=== PATIENT | female | born 1995 | race Two or more races ===

== ENCOUNTER 2018-02-13 08:29 | Emergency (ER) | payer SELFPAY ==
[2018-02-13 08:34] VITALS: BP 118/64
[2018-02-13] MEDS ORDERED: LIDOCAINE 2% VISCOUS SOLN 20 ML UDCUP PO ONE (10:10)
[2018-02-13] MEDS ORDERED: DEXAMETHASONE 4 MG TABLET PO ONE (10:10)
[2018-02-13] MEDS ORDERED: MAG HYDROX/AL HYDROX/SIMETH SUSP 30 ML UDCUP PO ONE (10:10)
--- NOTE | 2018-02-13 10:40 | ER Document Report ---
ED General - General Chief Complaint: Sore Throat Stated Complaint: SORE THROAT, COUGH Time Seen by Provider: 02/13/18 08:42 TRAVEL OUTSIDE OF THE [place] IN LAST 30 DAYS: No - HPI Patient complains to provider of: Sore throat Notes: Patient coming in for evaluation of sore throat. States ongoing for the last 24 hours. Patient states sick contacts last month with people with strep and viral URI like symptoms. Patient states no recent sick contacts no recent travel no fevers no chills no nausea vomiting patient states cough states difficulty swallowing because of pain. Patient resting comfortably well- hydrated upon my evaluation. - Related Data Allergies/Adverse Reactions: codeine [Codeine] Allergy (Verified 04/07/15 01:21) Home Medications: no home meds Past Medical History - Social History Smoking Status: Current Every Day Smoker Chew tobacco use (# tins/day): No Frequency of alcohol use: Occasional Drug Abuse: Marijuana Family History: Reviewed & Not Pertinent Patient has suicidal ideation: No Patient has homicidal ideation: No Renal/ Medical History: Denies: Hx Peritoneal Dialysis - Immunizations Hx Diphtheria, Pertussis, Tetanus Vaccination: Yes Review of Systems - Review of Systems Constitutional: No symptoms reported EENT: Throat pain Cardiovascular: No symptoms reported Respiratory: No symptoms reported Gastrointestinal: No symptoms reported Genitourinary: No symptoms reported Female Genitourinary: No symptoms reported Musculoskeletal: No symptoms reported Skin: No symptoms reported Hematologic/Lymphatic: No symptoms reported Neurological/Psychological: No symptoms reported -: Yes All other systems reviewed and negative Physical Exam - Vital signs Vitals: Temp Pulse Resp BP Pulse Ox 98.0 F 83 16 118/64 98 02/13/18 08:33 02/13/18 08:33 02/13/18 08:33 02/13/18 08:33 02/13/18 08:33 Interpretation: Normal - General General appearance: Appears well, Alert - HEENT Head: Normocephalic, Atraumatic Eyes: Normal Conjunctiva: Normal Cornea: Normal Eyelashes: Normal Pupils: PERRL Ears: Normal External canal: Normal Tympanic membrane: Normal Sinus: Normal Nasal: Normal Mouth/Lips: Normal Pharynx: Normal Neck: Normal - Respiratory Respiratory status: No respiratory distress Chest status: Nontender Breath sounds: Normal Chest palpation: Normal - Cardiovascular Rhythm: Regular Heart sounds: Normal auscultation Murmur: No - Abdominal Inspection: Normal Distension: No distension Bowel sounds: Normal Tenderness: Nontender Organomegaly: No organomegaly - Back Back: Normal, Nontender - Extremities General upper extremity: Normal inspection, Nontender, Normal color, Normal ROM , Normal temperature General lower extremity: Normal inspection, Nontender, Normal color, Normal ROM , Normal temperature, Normal weight bearing. No: Cecelia's sign - Neurological Neuro grossly intact: Yes Cognition: Normal Orientation: AAOx4 Audi Coma Scale Eye Opening: Spontaneous [place] Coma Scale Verbal: Oriented [place] Coma Scale Motor: Obeys Commands [place] Coma Scale Total: 15 Speech: Normal Motor strength normal: LUE, RUE, LLE, RLE Sensory: Normal - Psychological Associated symptoms: Normal affect, Normal mood - Skin Skin Temperature: Warm Skin Moisture: Dry Skin Color: Normal Course - Re-evaluation Re-evalutation: 02/13/18 14:39 Patient was negative. Examination was not revealing significant pathology. More likely viral pharyngitis. Will give the patient a dose of Decadron patient was encouraged to use Tylenol and Motrin for pain control. Patient also be given a prescription for magic mouth wash - Vital Signs Vital signs: Temp Pulse Resp BP Pulse Ox 98.0 F 83 16 118/64 98 02/13/18 08:33 02/13/18 08:33 02/13/18 08:33 02/13/18 08:33 02/13/18 08:33 Discharge - Discharge Clinical Impression: Sore throat (viral) Condition: Good Disposition: HOME, SELF-CARE Instructions: Upper Respiratory Illness ([facility]), Sore Throat ([facility]) Additional Instructions: Your examination today and your throat swabs not show any signs of strep infection do believe you have a viral illness. Please return to ER symptoms worsen. We will give you a dose of steroids today to aid in your pain he may also use the Magic mouthwash given to aid and pain I would also recommend taking Tylenol and Motrin Prescriptions: Nystatin/Dexameth/Diphen [Magic Mouthwash ([facility] Formula) Susp] 5 ml PO QID #120 ml Forms: Return to Work
== END 2018-02-13 10:46 | disposition home or self-care (01) ==
LOC: ER 08:29
DX: J02.9 Acute pharyngitis, unspecified (principal); F17.200 Nicotine dependence, unspecified, uncomplicated; Z88.6 Allergy status to analgesic agent
CPT/HCPCS: 99283; 87070; 87880; J3490

== ENCOUNTER 2019-12-15 12:59 | Emergency (ER) | payer MEDICAID ==
[2019-12-15] MEDS ORDERED: RABIES IMMUNE GLOBULIN INJ/PF 300 UNIT/ML VIAL IM ONE ×2 (14:17→16:20)
[2019-12-15] MEDS ORDERED: MORPHINE SULFATE 10 MG/ML INJ IV ONE ×2 (14:17→14:50)
[2019-12-15] MEDS ORDERED: RABIES VACCINE (PCEC)/PF 2.5 UNIT/1 ML KIT IM ONE (14:17)
--- NOTE | 2019-12-15 14:19 | ER Document Report ---
ED Medical Screen (RME) - General Chief Complaint: Dog Bite Stated Complaint: DOG BITE Time Seen by Provider: 12/15/19 14:09 Notes: 24-year-old female presents with dog bites to her right lower leg. Flap noted with 2 puncture wounds. Patient states this is a rescue dog and is unsure of rabies status. Animal control has been contacted by already. Patient had tetanus shot updated last June. I have greeted and performed a rapid initial assessment of this patient. A comprehensive ED assessment and evaluation of the patient, analysis of test results and completion of the medical decision making process with be conducted by additional ED providers. TRAVEL OUTSIDE OF THE [place] IN LAST 30 DAYS: No - Related Data Allergies/Adverse Reactions: codeine [Codeine] Allergy (Verified 12/15/19 14:09) Home Medications: control Past Medical History - Social History Chew tobacco use (# tins/day): No Frequency of alcohol use: None Drug Abuse: None Renal/ Medical History: Denies: Hx Peritoneal Dialysis - Immunizations Hx Diphtheria, Pertussis, Tetanus Vaccination: Yes Physical Exam - Vital signs Vitals: Temp Pulse Resp BP Pulse Ox 99.5 F 121 H 18 144/75 H 100 12/15/19 13:48 12/15/19 13:48 12/15/19 13:48 12/15/19 13:48 12/15/19 13:48 Course - Vital Signs Vital signs: Temp Pulse Resp BP Pulse Ox 99.5 F 121 H 18 144/75 H 100 12/15/19 13:48 12/15/19 13:48 12/15/19 13:48 12/15/19 13:48 12/15/19 13:48
--- NOTE | 2019-12-15 15:01 | RADIOLOGY REPORT (SQ) ---
EXAM DESCRIPTION: TIBIA FIBULA RIGHT COMPLETED DATE/TIME: 12/15/2019 2:37 pm REASON FOR STUDY: dog bite COMPARISON: None. NUMBER OF VIEWS: Two views. TECHNIQUE: Two radiographic images acquired of the right tibia and fibula to include the knee and an kle in at least one projection. LIMITATIONS: None. FINDINGS: MINERALIZATION: Normal. BONES: No acute fracture or dislocation. No worrisome bone lesions. SOFT TISSUES: Multiple soft tissue defects consistent with dog bite. OTHER: No other significant finding. IMPRESSION: Soft tissue changes. No underlying fracture or foreign body. TECHNICAL DOCUMENTATION: JOB ID: [id number] 2010 [employer]- All Rights Reserved Reading location - IP/workstation name: [email or web address] [email or web address]
[2019-12-15] MEDS ORDERED: HYDROCODONE/ACETAMINOPHEN 5-325 MG TABLET PO ONE (17:25)
[2019-12-15] MEDS ORDERED: LIDOCAINE 1% INJ-PF (10 MG/ML) 30 ML SDV INJ ONE (17:26)
[2019-12-15] MEDS ORDERED: AMOXICILLIN TRIHYD 250 MG CAPSULE PO ONE (17:26)
[2019-12-15] MEDS ORDERED: AMOXICILLIN TR/POT CLAVULANATE 500-125 MG TAB PO ONE (17:26)
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
[2019-12-15] MEDS ORDERED: ONDANSETRON 4 MG TAB.RAPDIS PO ONE (18:52)
[2019-12-15 19:37] VITALS: BP 120/60
== END 2019-12-15 19:37 | disposition home or self-care (01) ==
LOC: ER 12:59
PROC: 0HQKXZZ Repair Right Lower Leg Skin, External Approach (ICD-10-PCS; principal; 2019-12-15)
DX: Z23 Encounter for immunization (principal); S81.811A Laceration without foreign body, right lower leg, initial encounter; W54.0XXA Bitten by dog, initial encounter
CPT/HCPCS: 12002; 99283; 96372; 90471; 73590; 90675; 90376; J3490 ×3; S0119; J2270

== ENCOUNTER 2019-12-17 12:32 | Emergency (ER) | payer MEDICAID ==
[2019-12-17 12:37] VITALS: BP 111/59
--- NOTE | 2019-12-17 12:48 | ER Document Report ---
HPI - HPI Patient complains to provider of: Wound recheck Time Seen by Provider: 12/17/19 12:35 Onset/Duration: Better Quality of pain: Achy Pain Level: 3 Context: Patient presents here for wound recheck. Patient was treated for a dog bite to the right lower leg 2 days ago. Patient did have sutures placed to the wound and is here for recheck. Patient states she has been compliant with taking antibiotics. Patient denies any fever, redness or drainage. Associated Symptoms: denies: Fever, Nausea Exacerbated by: Movement Relieved by: Denies Similar symptoms previously: No Recently seen / treated by doctor: Yes - ROS ROS below otherwise negative: Yes Systems Reviewed and Negative: Yes All other systems reviewed and negative - CONSTITUTIONAL Constitutional: DENIES: Fever, Chills - RESPIRATORY Respiratory: DENIES: Coughing - REPRODUCTIVE Reproductive: DENIES: : - MUSCULOSKELETAL Musculoskeletal: REPORTS: Extremity pain. DENIES: Swelling - DERM Skin Color: Normal Skin Problems: Laceration, Puncture Wound Past Medical History - General Information source: Patient - Social History Smoking Status: Never Smoker Chew tobacco use (# tins/day): No Frequency of alcohol use: None Drug Abuse: None Occupation: [employer] Lives with: Family Family History: Reviewed & Not Pertinent Patient has suicidal ideation: No Patient has homicidal ideation: No Renal/ Medical History: Denies: Hx Peritoneal Dialysis Psychiatric Medical History: Reports: Hx Anxiety, Hx Depression Surgical Hx: Negative - Immunizations Hx Diphtheria, Pertussis, Tetanus Vaccination: Yes Vertical Provider Document - CONSTITUTIONAL Agree With Documented VS: Yes Exam Limitations: No Limitations General Appearance: WD/WN, No Apparent Distress - INFECTION CONTROL TRAVEL OUTSIDE OF THE [place] IN LAST 30 DAYS: No - HEENT HEENT: Atraumatic, Normocephalic - NECK Neck: Normal Inspection - RESPIRATORY Respiratory: No Respiratory Distress - CARDIOVASCULAR Cardiovascular: Regular Rate - MUSCULOSKELETAL/EXTREMETIES Musculoskeletal/Extremeties: MAEW, Tender - Tenderness to puncture wound lacerations to right lower leg, No Edema - NEURO Level of Consciousness: Awake, Alert, Appropriate Motor/Sensory: No Motor Deficit - DERM Integumentary: Warm, Dry Notes: Patient with multiple puncture wounds to right lower leg with laceration to the anterior aspect of the leg. Patient with 2 intact sutures to loosely approximated laceration. No surrounding erythema, no purulence, no swelling noted. Course - Re-evaluation Re-evalutation: 12/17/19 12:57 Patient's wound appears to be healing well without complication at this time. Patient does plan to return tomorrow for second dose of her rabies vaccination series. Patient encouraged to continue wound care. Discussed worsening symptoms that patient should return immediately for. Patient verbalized understanding and is agreeable with plan of care. - Vital Signs Vital signs: Temp Pulse Resp BP Pulse Ox 97.9 F 88 16 111/59 L 100 12/17/19 12:36 12/17/19 12:36 12/17/19 12:36 12/17/19 12:36 12/17/19 12:36 Discharge - Discharge Clinical Impression: Encounter for wound re-check Dog bite Qualifiers: Encounter type: initial encounter Qualified Code(s): W54.0XXA - Bitten by dog, initial encounter Condition: Stable Disposition: HOME, SELF-CARE Instructions: Animal Bites ([facility]), Dressing Instructions for Open Wounds ([facility]) Additional Instructions: Return immediately for any new or worsening symptoms Followup with your primary care provider, call tomorrow to make a followup appointment Continue daily wound care and finish your antibiotics as previously prescribed Suture removal in 6 days Forms: Return to Work
== END 2019-12-17 12:58 | disposition home or self-care (01) ==
LOC: ER 12:32
DX: S81.851D Open bite, right lower leg, subsequent encounter (principal); W54.0XXD Bitten by dog, subsequent encounter
CPT/HCPCS: 99282

== ENCOUNTER → 2020-08-24 | Outpatient (CLI) | payer MEDICAID ==
--- NOTE | 2020-08-24 13:56 | RADIOLOGY REPORT (SQ) ---
EXAM DESCRIPTION: U/S [id number] TRNABD 1GES W/ODOP IMAGES COMPLETED DATE/TIME: 08/24/2020 1:19 pm REASON FOR STUDY: ENCOUNTER FOR SUPRVSN OF NORMAL , FIRST TRIMESTER Z34.81 ENCOUNTER FOR S UPRVSN OF NORMAL , FIRST TRIM COMPARISON: None. TECHNIQUE: Transabdominal static and realtime grayscale images acquired of the pelvis. Additional se lected spectral and color Doppler images recorded. All images stored on PACs. bHCG: Unknown CLINICAL DATES: LMP 06/03/2020 11 weeks 5 days LIMITATIONS: None. FINDINGS: FETUS: Single Living intrauterine . ULTRASOUND EGA: 7 weeks 1 day ULTRASOUND JESENIA: 04/11/2021 EFW: Not applicable less than 20 weeks. CRL: 1.1 cm FHR: 143 beats per minute. SURVEY: Too early to assess. AMNIOTIC FLUID: Adequate amount. PLACENTA: Not yet developed due to early gestation. SUBCHORIONIC BLEED: Yes SIZE OF BLEED: 5 x 4 x 6 mm. UTERUS: No masses. No anomalies. CERVICAL LENGTH: 2.4 cm. Closed. RIGHT ADNEXA: Normal ovary with normal vascular flow. No adnexal free fluid. No adnexal masses. LEFT ADNEXA: Normal ovary with normal vascular flow. No adnexal free fluid. No adnexal masses. FREE FLUID: None. OTHER: No other significant finding. IMPRESSION: LIVING INTRAUTERINE . EGA 7 weeks 1 day Trimester of : First trimester - 0 to 13 weeks. TECHNICAL DOCUMENTATION: JOB ID: [id number] 2010 [employer]- All Rights Reserved rev-03/13 Reading location - IP/workstation name: [email or web address]
== END ==
LOC: RAD 12:46
PROVIDERS: ATTEND Midwife
DX: Z34.81 Encounter for supervision of other normal pregnancy, first trimester (principal); Z3A.01 Less than 8 weeks gestation of pregnancy
CPT/HCPCS: 76801

== ENCOUNTER → 2020-11-24 | Outpatient (CLI) | payer MEDICAID ==
--- NOTE | 2020-11-24 14:52 | RADIOLOGY REPORT (SQ) ---
EXAM DESCRIPTION: U/S OB 14+ TRNABD 1GES W/O DOP IMAGES COMPLETED DATE/TIME: 11/24/2020 2:40 pm REASON FOR STUDY: ENCOUNTER FOR SUPERVISION OF OTHER NORMAL , SECOND TRIMESTER Z34.82 ENCO UNTER FOR SUPRVSN OF NORMAL , SECOND TRI COMPARISON: 08/24/2020 TECHNIQUE: Static and Dynamic grayscale imaging performed of gravid uterus using transabdominal appr oach. Additional selected color Doppler and spectral images recorded. All stored on PACS. LIMITATIONS: None. FINDINGS: FETUSES SEEN:1 EGA: 20 weeks, 2 days Calculated using BPD,FL,HC,AC documented on images. No discrepancy with clinic al dates. JESENIA: 04/11/2021 EFW: 345 grams PERCENTILE: Not applicable. Fetus less than or equal to 20 weeks gestation. LVP: 4.3 cm PLACENTA: Anterior. PRESENTATION: Variable. ANATOMY: HEART RATE: 169 beats per minute. FOUR CHAMBER HEART: Visualized. THREE VESSEL CORD: Yes. CORD INSERTION: Visualized. KIDNEYS AND BLADDER: Visualized. Appear normal. STOMACH: Visualized. Appears normal. SPINE: Normal as visualized. BRAIN AND LATERAL VENTRICLES: Visualized. Appear normal. OTHER: No other significant finding. MATERNAL ADNEXA: Maternal ovaries not visualized. CERVICAL LENGTH: 2.5 cm Closed. OTHER: No other significant finding. IMPRESSION: LIVING INTRAUTERINE . ESTIMATED GESTATIONAL AGE 20 weeks, 2 days NO VISUALIZED ANOMALIES. Trimester of : Second trimester - 13 weeks 1 day to 27 weeks 6 days. TECHNICAL DOCUMENTATION: JOB ID: [id number] [employer]- All Rights Reserved Reading location - IP/workstation name: [email or web address]
== END ==
LOC: RAD 14:13
PROVIDERS: ATTEND Midwife
DX: Z34.82 Encounter for supervision of other normal pregnancy, second trimester (principal); Z3A.20 20 weeks gestation of pregnancy
CPT/HCPCS: 76805